=== PATIENT | male | born 1935 | race Caucasian/White ===

== ENCOUNTER 2016-11-30 11:49 | Day surgery (SDC) | payer MEDICARE ==
[~2016-11-30] VITALS: Ht 172.7 cm; Wt 253.0 kg
[~2016-11-30 11:49] MED LIST: AMLODIPINE-OLM1 EAC1 PO; ASPIR 8181 MG PO; COZAAR50 MG PO; FISH OIL 1,0001 EAC2 NG; LEVOTHYROXINE0.5 GM PO; LIPITOR40 MG PO; NIACIN500 M1 PO
--- NOTE | 2016-11-30 13:43 | NUR ---
11/30/16 1343 [facility] SPE[facility] WITH PT.
--- NOTE | 2016-12-01 22:37 | OR ---
[facility] [address] [place], [place] [address] Signed DATE OF PROCEDURE: 11/30/16 PREOPERATIVE DIAGNOSIS: Rectal bleeding. POSTOPERATIVE DIAGNOSES Sigmoid and left-sided diverticulosis; no evidence of bleeding or lesion bleeding. Identification of tattoo in sigmoid related to prior polypectomy. PROCEDURE: Total colonoscopy to cecum. SURGEON: Fabby Burgess MD ANESTHESIA: Intravenous sedation with Fentanyl 100 mcg, Versed 5 mg. INDICATION This 81-year-old white man is a patient of Dr. Sheldon Lundberg in [facility]. He has seen Dr. Felix in the past for treatment of lymphoma. The patient was noted to have heme-positive stool and has history of colonic polyps excised and heparin in the past. Approximately 2 months prior to evaluation, he was noted to have blood per rectum. This was associated with diarrhea and bright red blood without pain. It lasted about 24 hours. He went to the emergency room in [place] where examination was unremarkable. He has had no complete further bleeding. He has no family history of colon cancer. His malignancy treated in the past was a non-Hodgkin's lymphoma, for which he underwent chemotherapy. He did have rectal bleeding with that therapy which cleared spontaneously. He is admitted at this time to undergo colonoscopy. He understand the risks of bleeding, infection, perforation, and so forth. FINDINGS The prep was good. Complete colonoscopy was undertaken of the cecum. There were numerous diverticula in the sigmoid and left colon. There is no sign of polyp or colitis. An area of the sigmoid appeared to have a prior area of endoscopic tattooing but no sign of recurrent polyp. As regards to the rectum, there were minimal hemorrhoidal changes and no sign of prominent hemorrhoidal disease otherwise. PROCEDURE IN DETAIL The patient was brought to the endoscopy suite and placed in lateral decubitus position, given intravenous sedation to the point of slurred speech and nystagmus. Digital rectal examination was normal. An Olympus video colonoscope was passed in the rectum and manipulated throughout the colon. Diverticula are noted in the sigmoid and left colon. The scope was ultimately Electronically Signed By: FABBY BURGESS MD 12/01/16 2237 PATIENT NAME: SREE SILVA OPERATIVE REPORT DATE OF : 39 PHYSICIAN: FABBY BURGESS MD REPORT #: [id number] REPORT IS CONFIDENTIAL AND NOT TO BE RELEASED WITHOUT AUTHORIZATION [facility] [address] [place] [id number] Signed advanced to the cecum. The ileocecal valve and appendiceal orifice appeared normal. The scope was withdrawn from that point. Examination throughout showed no sign of abnormality until the left colon where diverticula were once again seen. Careful withdrawal of scope through the left colon and sigmoid confirmed diverticulosis but no sign of polyps or active bleeding lesion. In the rectosigmoid appeared to be an area of prior endoscopic tattoo application but no sign of residual or recurrent polyp. Retroflexed view in the rectum was normal. The scope was removed. The patient was taken to recovery room in good condition. CONCLUDING DIAGNOSES Diverticular changes in sigmoid and left colon. No evidence of polyps, colitis, or cancer. PLAN Recommend high-fiber diet. He will return to the ongoing care with Dr. Sheldon Lundberg in [facility]. Fabby Burgess MD JM/Modl /[id number] cc: [place] [address] Electronically Signed By: FABBY BURGESS MD 12/01/16 2237 PATIENT NAME: SREE SILVA OPERATIVE REPORT DATE OF : 39 PHYSICIAN: FABBY BURGESS MD REPORT #: [id number] REPORT IS CONFIDENTIAL AND NOT TO BE RELEASED WITHOUT AUTHORIZATION
== END 2016-11-30 14:18 | disposition home or self-care (01) ==
LOC: OPS 11:49 → DS 14:00 → OPS 14:18
PROVIDERS: Surgery
PROC: 0DJD8ZZ Inspection of Lower Intestinal Tract, Via Natural or Artificial Opening Endoscopic (ICD-10-PCS; principal; 2016-11-30 14:00)
DX: K57.30 Diverticulosis of large intestine without perforation or abscess without bleeding (principal); I10 Essential (primary) hypertension; F17.210 Nicotine dependence, cigarettes, uncomplicated; Z86.010 Personal history of colon polyps; Z98.890 Other specified postprocedural states; Z85.528 Personal history of other malignant neoplasm of kidney
CPT/HCPCS: 99152; 99153; J2250; J3010; J7120

== ENCOUNTER 2020-01-28 10:50 | Day surgery (SDC) | payer MEDICARE ==
[~2020-01-28] VITALS: Ht 172.7 cm; Wt 88.9 kg
[2020-01-28] MEDS ORDERED: VITAMIN D3250 MCG PO (11:22)
[2020-01-28] MEDS ORDERED: FINASTERIDE5 MG PO (11:23)
[2020-01-28] MEDS ORDERED: PROAIR HFA8.5 GM INH (11:24)
--- NOTE | 2020-01-28 13:07 | NUR ---
01/28/20 1307 Thais Carrion 1229 PT ARRIVED IN PACU SLEEPY WITH NO C/O'S. 1240 SITTING UP IN BED SIPPING ON APPLE JUICE. DC INSTRUCTIONS GIVEN. ALL QUESTIONS ANSWERED. 1250 PT GETTING DRESSED WITH RN STAND BY ASSIST. 1255 LEFT VIA W/C TO CAR.
--- NOTE | 2020-02-04 15:01 | PATH ---
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 Status-post chemo treatment and radioimmunotherapy. Now with progressive lymphadenopathy. C85.90 (non-Hodgkin lymphoma, unspecified, unspecified site) DIAGNOSIS SUMMARY: A. Peripheral blood - Normochromic normocytic anemia. B. Bone marrow, left, aspiration and core biopsy: - Normocellular bone marrow without morphologic or immunophenotypic evidence of residual chronic lymphocytic leukemia/small lymphocytic lymphoma. - Adequate storage iron. - Negative for reticulin fibrosis. - See Diagnostic Comment. 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 Evaluation of this bone marrow specimen reveals a normocellular marrow with an estimated overall cellularity of 30-40%. Flow cytometry of the bone marrow detected no monoclonal B-cell population, aberrant T-cell population, or increase in PI71-xnmajdlu blasts. There is no evidence of residual chronic lymphocytic leukemia/small lymphocytic lymphoma in this evaluation. Cytogenetic analysis is pending, and the result will be issued by addendum. AIC:smn:C2NR PERIPHERAL BLOOD: HEMOGRAM ([facility]; 01/28/2020): WBC 5.7 K/uL, RBC 4.09 M/uL, HGB 13.4 g/dL, HCT 39.7%, MCV 97.0 fL, MCH 33 pg, MCHC 34 g/dL, RDW 14.6%, PLT 147 K/uL. MANUAL DIFFERENTIAL COUNT: Segmented neutrophils 43%, band neutrophils 2%, lymphocytes 45%, monocytes 3%, eosinophils 3%, basophils 4%. The red blood cells are decreased in number and are normochromic and normocytic without significant anisopoikilocytosis. A few ovalocytes and microcytes are PATIENT NAME: SREE SILVA PATHOLOGY DATE OF : 39 REPORT #: [id number] PHYSICIAN: JESSE CANTOR PCP: TRICIA NUNEZ MD REPORT IS CONFIDENTIAL AND NOT TO BE RELEASED WITHOUT AUTHORIZATION [facility] [address] [place], [place] [address] Signed present. The white blood cells are present in normal number. The lymphoid cells include scattered large granular lymphocytes and demonstrate mature morphology. A few smudge cells are identified. Scattered lymphocytes with reactive changes are also present. Circulating blasts are not identified. Platelets are present in low normal number and are morphologically unremarkable. BONE MARROW: BONE MARROW ASPIRATE SMEARS/TOUCH IMPRINTS: The aspirate smears contain adequate cellularity for evaluation. The erythroid precursors demonstrate mild megaloblastoid nuclear maturation without significant nuclear irregularities. The granulocytic precursors mature to segmented forms without dyspoiesis, and blasts are not increased. 15% small lymphoid cells are identified. The scattered megakaryocytes demonstrate variable morphology. BONE MARROW DIFFERENTIAL COUNT: Blasts 1%, promyelocytes 3%, myelocytes 9%, metamyelocytes 11%, band neutrophils 12%, segmented neutrophils 15%, monocytes 1%, eosinophils 4%, lymphocytes 15%, plasma cells 1%, erythroid precursors 28%. Myeloid:erythroid ratio: 2.0:1. BONE MARROW CORE BIOPSY/ASPIRATE CELL BLOCK: The core biopsy demonstrates a normocellular bone marrow with an estimated overall cellularity of 30-40%. The scattered megakaryocytes demonstrate variable morphology and are not significantly clustered. Prominent lymphoid aggregates are not identified. The clot section contains scattered particles with similar findings. SPECIAL STAINS: - Iron (aspirate smear): Adequate storage iron, grade 2 of 4; negative for ring sideroblasts. - Iron (block B1): Scattered positivity. - Reticulin (block A1): Negative for reticulin fibrosis. The special stain controls react appropriately. IMMUNOHISTOCHEMICAL STAINS (blocks A1 and B1): - CD20: Highlights a few scattered positive cells. - PAX5: Scattered positive cells. - CD3: Scattered and focally aggregated T-cells positive. IMMUNOHISTOCHEMICAL STAINS (block A1): - CD71: Highlights erythroid precursors with preserved colony architecture. - Myeloperoxidase: Granulocytic precursors variably positive. - Factor 8: Highlights scattered megakaryocytes with variable size and focal clustering. AIC:smn PATIENT NAME: SREE SILVA PATHOLOGY DATE OF : 39 REPORT #: [id number] PHYSICIAN: JESSE PATHOLOGY PCP: TRICIA NUNEZ MD REPORT IS CONFIDENTIAL AND NOT TO BE RELEASED WITHOUT AUTHORIZATION [address] [address] Signed FLOW CYTOMETRY: Bone marrow, flow cytometry: - No increase in NM51-nxybpyrt blasts. - No monoclonal B-cell or aberrant T-cell population identified. - See Comment. COMMENT: Flow cytometry of this bone marrow specimen reveals no increase in XU64-hnvovarg blasts or immunophenotypic evidence of a non-Hodgkin lymphoid neoplasm. Final interpretation of these results requires correlation with morphologic and clinical findings. AIC:smn FLOW CYTOMETRY ANALYSIS: FLOW DIFFERENTIAL (% Total CD45 vs. SSC gating): Myeloid 76%; Lymphoid 10%; Monocyte 1%; Dim CD45/Blast: 1.3%. Cell Count: 3.0 x 10*3/uL. POPULATION ANALYSIS: BLASTS: Analysis of the dim CD45 gate demonstrates 1.3% myeloblasts by CD34/CD117. 3.3% of total events are hematogones. LYMPHOID CELLS: The lymphocyte gate comprises 10% of total events and includes 82% T-cells with a CD4:CD8 ratio of 0.6:1 and normal pop T-cell antigen expression. 7% of lymphocytes are polyclonal B-cells with a kappa:lambda ratio of 2.0:1. The remainders are NK-cells. MYELOID CELLS: The myeloid population comprises 76% of the total events. No aberrant immunophenotypic expression is detected. MONOCYTES: The monocyte population comprises 1% of the total events. Monocytes are not increased. No aberrant immunophenotypic expression is detected. PLASMA CELLS: 0.4% plasma cells are detected in the screening gate neg-dimCD45/CD38. Plasma cells are CD45 dim and positive for CD19. ANTIBODIES USED: KAPPA, LAMBDA, CD20, CD10, CD19, CD23, CD38, FMC7, CD16, CD56, CD8, CD5, CD2, CD4, CD7, CD3, CD14, CD33, CD13, HLADR, CD34, CD117, CD15, CD45: TOTAL ANTIBODIES USED: 24. DKW FINAL DIAGNOSIS PERFORMED BY: Katelyn Ca MD, Pathologist Jan 29 2020 5:10PM CYTOGENETICS: Pending, to be reported by addendum. GROSS DESCRIPTION: Two specimens are received in two containers, labeled "Beau". PATIENT NAME: SREE SILVA PATHOLOGY DATE OF : 39 REPORT #: [id number] PHYSICIAN: JESSE CANTOR PCP: TRICIA NUNEZ MD REPORT IS CONFIDENTIAL AND NOT TO BE RELEASED WITHOUT AUTHORIZATION [facility] [address] [place], [place] [address] Signed A. The specimen, labeled "Beau, core," is received in formalin and consists of two red-brown paulino cores up to 1.5 cm. The specimen is entirely submitted in block (A1) following decalcification in Immunocal. B. The specimen, labeled "Beau, clot," is received in formalin and consists of a 1.4 x 1.4 x 0.2 cm aggregate of red-brown clotted material. The specimen is entirely submitted in block (B1). JW (under the direct supervision of a pathologist) The Gross Description was prepared using a voice recognition system. The report was reviewed for accuracy; however, sound-alike word errors, addition and/or deletions may occur. If there is any question about this report, please contact Client Services. ADDITIONAL NOTES: This test was developed and its performance characteristics determined by [facility]. It has not been cleared or approved by the US Food and Drug Administration. The FDA does not require this test to go through premarket FDA review. This test is used for clinical purposes. It should not be regarded as investigational or for research. This laboratory is certified under the Clinical Laboratory Improvement Amendments (CLIA) as qualified to perform high complexity clinical laboratory testing. Immunohistochemical and/or in situ hybridization studies were performed on this case with the appropriate positive controls that react as expected. This test was developed and its performance characteristics determined by [facility]. It has not been cleared or approved by the U.S. Food and Drug Administration. The FDA has determined that such clearance or approval is not necessary. This test is used for clinical purposes. It should not be regarded as investigational or for research. [facility] is certified under the Clinical Laboratory Improvement Amendments of 1988 (CLIA) as qualified to perform high complexity clinical laboratory testing. In this case, certain antibodies were performed by both immunohistochemistry and flow cytometry analysis because flow cytometry analysis did not fully explain all the light microscopic findings. Immunohistochemistry aided in the analysis. Both methods are deemed medically necessary in this case. PERFORMING LABORATORY: The technical component was performed by [facility], [address] PATIENT NAME: SREE SILVA PATHOLOGY DATE OF : 39 REPORT #: [id number] PHYSICIAN: JESSE CANTOR PCP: TRICIA NUNEZ MD REPORT IS CONFIDENTIAL AND NOT TO BE RELEASED WITHOUT AUTHORIZATION [address] [address] [place] [address] ([employer]: Mati Tran D.O.; CLIA#: [id number]). Professional interpretation was performed by [facility], [facility], [address] [place] [address] ([employer]: Arnav Latham M.D.; CLIA#: [id number]). The technical component was performed by [facility], [address] [place] [address] ([employer]: Mati Tran D.O.; CLIA#: [id number]). Professional interpretation was performed by [facility], [facility], [address] [place] [id number] ([employer]: Arnav Latham M.D.; CLIA#: [id number]). IMAGES: A: [id number] A: [id number] REASON FOR ADDENDUM: To add results of additional testing. Bone marrow aspirate, CYTOGENETIC ANALYSIS Result: 46,XY[20] Normal male karyotype Interpretation: Twenty normal cells were observed. There was no evidence of any chromosome abnormality within the limits of this study. Cytogenetic Analysis Summary: Number of Cells Imaged and Analyzed: 20 Number of Cultures used for Analysis: 2 Number of Karyograms: 4 Banding Level: 350-400 Extra Cells Analyzed /Scored: 0 Banding Method: GTW/G The technical and professional components of the cytogenetics analysis were performed at [facility], [place] ([place], [place], case #[id number]). Detailed report is kept on file. Diagnostician: Katelyn Ca MD Pathologist Electronically Signed 02/04/2020 Copies: PATIENT NAME: SREE SILVA PATHOLOGY DATE OF : 39 REPORT #: [id number] PHYSICIAN: JESSE CANTOR PCP: TRICIA NUNEZ MD REPORT IS CONFIDENTIAL AND NOT TO BE RELEASED WITHOUT AUTHORIZATION [address] [address] Signed ~ PATIENT NAME: SREE SILVA PATHOLOGY DATE OF : 39 REPORT #: [id number] PHYSICIAN: JESSE PATHOLOGY PCP: TRICIA NUNEZ MD REPORT IS CONFIDENTIAL AND NOT TO BE RELEASED WITHOUT AUTHORIZATION
== END 2020-01-28 12:55 | disposition home or self-care (01) ==
LOC: OPS 10:50 → DS 10:50 → OPS 12:00
PROVIDERS: ATTEND Specialist
PROC: 079T3ZX Drainage of Bone Marrow, Percutaneous Approach, Diagnostic (ICD-10-PCS; 2020-01-28)
PROC: 07DR3ZX Extraction of Iliac Bone Marrow, Percutaneous Approach, Diagnostic (ICD-10-PCS; principal; 2020-01-28 12:00)
DX: D64.9 Anemia, unspecified (principal); C85.90 Non-Hodgkin lymphoma, unspecified, unspecified site; C64.2 Malignant neoplasm of left kidney, except renal pelvis; K70.30 Alcoholic cirrhosis of liver without ascites; N40.0 Benign prostatic hyperplasia without lower urinary tract symptoms; K21.9 Gastro-esophageal reflux disease without esophagitis; E03.9 Hypothyroidism, unspecified; G47.33 Obstructive sleep apnea (adult) (pediatric); Z79.899 Other long term (current) drug therapy; Z79.82 Long term (current) use of aspirin
CPT/HCPCS: 80053; 82232; 83615; 84155; 84165; 85025; 88184; 88185; 88305; 88311; 88313; 88341; 88342; 99153; G0500; J2250; J3010; J7121